=== PATIENT | male | born 1960 | race Caucasian/White ===

== ENCOUNTER → 2021-02-14 | Outpatient (CLI) | payer OTHER ==
[~2021-02-14] MED LIST: CHOL500045 PO; GLIM1TAB7 PO; METF500T17 PO; RED600CA2 PO; RIVA20TA PO; SOTA120T26 PO
== END | disposition home or self-care (01) ==
LOC: CFH 09:40 → EDSTATUS 09:45
PROVIDERS: ATTEND Internal Medicine
DX: I25.10 Atherosclerotic heart disease of native coronary artery without angina pectoris (principal); E78.5 Hyperlipidemia, unspecified; E11.65 Type 2 diabetes mellitus with hyperglycemia; J98.11 Atelectasis
CPT/HCPCS: 75571

== ENCOUNTER → 2021-05-10 | Outpatient (CLI) | payer BC | END | disposition home or self-care (01) | LOC: CFH 10:01 | PROVIDERS: ATTEND Nurse Practitioner Primary Care | DX: R93.89 Abnormal findings on diagnostic imaging of other specified body structures (principal) | CPT/HCPCS: 71046 ==

== ENCOUNTER → 2021-06-06 | Outpatient (CLI) | payer BC | END | disposition home or self-care (01) | LOC: CFH 10:50 | PROVIDERS: ATTEND Nurse Practitioner Primary Care | DX: R91.8 Other nonspecific abnormal finding of lung field (principal); J18.9 Pneumonia, unspecified organism | CPT/HCPCS: 71046 ==